=== PATIENT | female | born 1990 ===

== ENCOUNTER 2016-03-25 12:38 | Day surgery (SDC) | payer OTHER ==
[2016-03-25] MEDS ORDERED: LIDOCAINE 1% 5 ML SDV ID PRN (13:07)
[2016-03-25] MEDS ORDERED: LR 1,000 ML IV ONE ×2 (13:07→14:30)
[2016-03-25] MEDS ORDERED: ceFAZolin 2 GM/DEXTROSE 100 ML IV ONE (14:30)
[2016-03-25] MEDS ORDERED: MIDAZOLAM 2 MG/2 ML VIAL ONE (14:42)
[2016-03-25] MEDS ORDERED: SCOPOLAMINE HYDROBROMIDE 1.5 MG PATCH TD ONE (14:42)
[2016-03-25] MEDS ORDERED: fentaNYL 250 MCG/5 ML INJ ONE (14:49)
[2016-03-25] MEDS ORDERED: PROPOFOL 200 MG/20 ML VIAL ONE (14:50)
[2016-03-25] MEDS ORDERED: SKIN ADHESIVE (DERMABOND) 1 EACH TP ONE (14:52)
[2016-03-25] MEDS ORDERED: BUPIVACAINE/EPI 0.5% 30 ML SDV ONE (14:52)
[2016-03-25] MEDS ORDERED: LIDOCAINE 2% 5 ML SDV ONE (15:06)
[2016-03-25] MEDS ORDERED: ROCURONIUM 100 MG/10 ML VIAL ONE ×2 (15:06→16:07)
[2016-03-25] MEDS ORDERED: DEXAMETHASONE 4 MG/ML VIAL ONE ×2 (15:07)
[2016-03-25] MEDS ORDERED: PROPOFOL/EMULSION 500 MG/50 ML BOTTLE IV ONE (15:24)
[2016-03-25] MEDS ORDERED: fentaNYL 100 MCG/2 ML INJ ONE (16:45)
[2016-03-25] MEDS ORDERED: MEPERIDINE 25 MG/ML SYR ONE (16:48)
[2016-03-25] MEDS ORDERED: HYDROmorphONE/DILAUDID 2 MG/ML SYR ONE (17:15)
[2016-03-25] MEDS ORDERED: ONDANSETRON 4 MG/2 ML VIAL ONE (19:07)
--- NOTE | 2016-03-25 19:49 | GOP ---
[f rep st] OPERATIVE REPORT DATE OF OPERATION: 03/25/2016 SURGEON: Nicko Bazan MD ARBORIST REPRESENTATIVE: Roberta Rodriguez CFA ANESTHESIA: General. PREOPERATIVE DIAGNOSIS: 1. Endometriosis. 2. Pelvic pain. 3. Dysmenorrhea. 4. Dyschezia. POSTOPERATIVE DIAGNOSIS: 1. Endometriosis. 2. Pelvic pain. 3. Dysmenorrhea. 4. Dyschezia. PROCEDURE PERFORMED: 1. Robotic excision of endometriosis. 2. Right ureterolysis. 3. Bilateral partial oophorectomy. 4. Bilateral ovarian pexy. FINDINGS: The patient had lesions on both ovaries, including gelatinous consistency lesions, as well as a smaller endometriotic implants. There were lesions in both ovarian fossae overlying both urete rs, as well as the posterior cul-de-sac medial to the right uterosacral ligament just anterior to the rectum. There were smaller lesions on the serosal surface of the cervix as well as posterior uterus . SPECIMENS: 1. Bilateral ovarian fossae and posterior cul-de-sac peritoneum with endometriosis. 2. Partial oophorectomy. ESTIMATED BLOOD LOSS: Scant. DESCRIPTION OF PROCEDURE: The patient was taken to the operating room where she was identified. Gen eral anesthesia was administered and found to be adequate. She was placed in the lithotomy position and prepared and draped in normal sterile fashion. A Hulka tenaculum was placed in the uterus for ma nipulation. A Harrison catheter was then placed. A 1 cm infraumbilical incision was made with a scalpel. The Veress needle with the CO2 gas flowing w as advanced into the peritoneal cavity. The abdomen was then insufflated with carbon dioxide gas. T he 12 mm trocar, followed by the laparoscope, were then inserted. The upper abdomen was unremarkable . There was no endometriosis on either diaphragm. Two lateral ports were placed, one on the right a nd one on the left under direct visualization. The patient was then placed in the Trendelenburg posi tion and the da Wilmer robot docked on the left side. The instruments were then brought into the abdo davon cavity under direct visualization. The lesions on both ovaries were excised. This included a portion of the ovarian capsule. The remaining ovarian lesions were fulgurated. The left ovary was a dherent to the ovarian fossa. Adhesiolysis was performed with fulguration of the lesions on the ovar y. There were no lesions seen in the anterior cul-de-sac. A bilateral ovarian pexy was performed to treat her painful ovulation secondary to the ovarian adhesions from endometriosis to the ovarian fos rosey. Both ovaries were sutured to the ipsilateral round ligaments near the internal inguinal ring wi th 4-0 chromic suture. The posterior cul-de-sac, peritoneum and endometriosis was then completely ci rcumscribed with the monopolar scissors and completely excised. Attention was then turned to the left ovarian fossa where the entire peritoneum with endometriosis wa s excised, taking care to avoid the left ureter. A similar procedure was performed on the patient's right side. However, it was more extensive and dense. As a result, a right ureterolysis was require d. The peritoneum near the pelvic brim was incised and the ureter gently dissected free. The dissec tion was carried caudally beyond the crossing of the right uterine artery. The ureter was gently dis sected free and lateralized up the overlying peritoneum and endometriosis. Once this was accomplishe d, the entire ovarian fossa peritoneum was excised to remove all of the endometriosis. Finally, the serosal surface of the posterior cervix was excised to remove several lesions. There was some filmy endometriosis on the posterior which was fulgurated. All specimens were removed. The pel vis was irrigated with sterile saline. Two sheets of Interceed were placed in the posterior cul-de-s ac and ovarian fossae to prevent bowel adhesions. The robot was then undocked. The fascia was close d with 0 Vicryl, the skin with 4-0 Monocryl and surgical adhesive. Anesthesia was reversed and the p atient taken to the PACU awake, in stable condition. COMPLICATIONS: None. DISPOSITION: Patient stable to PACU. /[id number]/MODL
== END 2016-03-25 20:20 | disposition home or self-care (01) ==
LOC: FSGY 12:38
PROVIDERS: ATTEND Obstetrics & Gynecology
PROC: 0US24ZZ Reposition Bilateral Ovaries, Percutaneous Endoscopic Approach (ICD-10-PCS; principal; 2016-03-25 13:45)
PROC: 0UBF4ZZ Excision of Cul-de-sac, Percutaneous Endoscopic Approach (ICD-10-PCS; principal; 2016-03-25 13:45)
DX: N80.3 Endometriosis of pelvic peritoneum (principal); N80.1 Endometriosis of ovary; N80.0 Endometriosis of uterus; N94.6 Dysmenorrhea, unspecified; R10.2 Pelvic and perineal pain; N94.10 Unspecified dyspareunia; E28.2 Polycystic ovarian syndrome
CPT/HCPCS: 58662; 58679; C1765; J0690; J1100; J1170; J2250; J2405; J2704; J3010